=== PATIENT | female | born 1960 | race Caucasian/White ===

== ENCOUNTER 2019-05-30 11:32 | Inpatient (IN) | payer MEDICARE ==
[~2019-05-30] VITALS: Ht 172.7 cm; Wt 119.3 kg
[2019-05-30 13:30] LABS: CHLORIDE 92 mEq/L (98-107)
[2019-05-30 13:31] LABS: INR 1.1; PROTHROMBIN TIME 11.5 sec (9.6-11.0)
[2019-05-30 13:32] LABS: HEMATOCRIT. 42.1 % (36.0-48.0); HEMOGLOBIN. 13.4 g/dL (12.0-16.0); MEAN CORPUSCULAR HEMOGLOBIN 28.7 pg (28.0-32.0); MEAN CORPUSCULAR VOLUME 89.9 fL (81.0-99.0); MEAN PLATELET VOLUME 9.1 fl (7.4-10.4); PLATELET 137 x1000/uL (130-400); RED BLOOD CELL COUNT 4.68 mill/uL (4.2-5.4); RED CELL DISTRIBUTION WIDTH 18.4 % (11.6-14.6)
[2019-05-30 14:16] LABS: PLATELET ESTIMATE NORMAL
[2019-05-30] MEDS ORDERED: PIPERACILLIN/TAZ 3.375G PREMIX 50 ML IV ONE (14:45)
[2019-05-30] MEDS ORDERED: SODIUM CHLORIDE 0.9% 1000ML BAG (SEPSIS BOLUS) IV ONE (14:45)
[2019-05-30] MEDS ORDERED: VANCOMYCIN 1 G PREMIX 200 ML IV ONE (14:45)
[2019-05-30 16:50] VITALS: BP 100/61
[2019-05-30] MEDS ORDERED: ASPI-1497 PO (17:10)
[2019-05-30] MEDS ORDERED: TRAM50TA3 PO (17:10)
[2019-05-30] MEDS ORDERED: [UNRECOGNIZED DRUG - OTHER] (17:10)
[2019-05-30] MEDS ORDERED: SEVE800T8 PO (17:10)
[2019-05-30] MEDS ORDERED: ATOR10TA69 PO (17:10)
[2019-05-30] MEDS ORDERED: OMEP40CA12 PO (17:10)
[2019-05-30] MEDS ORDERED: MIDO10TA PO (17:10)
[2019-05-30] MEDS ORDERED: GABA-531 PO (17:10)
[2019-05-30] MEDS ORDERED: LINA145C PO (17:10)
[2019-05-30 17:43] VITALS: BP 90/45
[2019-05-30 18:00] VITALS: BP 95/58
[2019-05-30] MEDS ORDERED: ZOLPIDEM TARTRATE 5MG TABLET PO PRN (19:45)
[2019-05-30] MEDS ORDERED: ACETAMINOPHEN 325MG TABLET PO PRN (19:45)
[2019-05-30] MEDS ORDERED: DEXTROSE 50% WATER 50ML SYRINGE IV PRN (19:45)
[2019-05-30] MEDS ORDERED: MAGNESIUM/ALUMINUM HYDROXIDE/SIMETHICONE 30ML UDC PO PRN (19:45)
[2019-05-30] MEDS ORDERED: GUAIFENESIN 200MG/10ML SUGAR FREE UDC PO PRN (19:45)
[2019-05-30] MEDS ORDERED: DIPHENHYDRAMINE 50MG/ML VIAL IV PRN (19:45)
[2019-05-30] MEDS ORDERED: ONDANSETRON HCL 4MG/2ML INJ IV PRN (19:45)
[2019-05-30 20:00] VITALS: BP 121/56
[2019-05-30] MEDS: BLOOD SUGAR DIAGNOSTIC STRIP TEST SCH (21:00)
[2019-05-30 22:00] VITALS: BP 134/76
[2019-05-30] MEDS: ATORVASTATIN CALCIUM 10MG TABLET PO SCH (22:01)
[2019-05-30] MEDS: OMEPRAZOLE 20MG CAPSULE EXTENDED RELEASE PO SCH (22:02)
[2019-05-30] MEDS: GABAPENTIN 300MG CAPSULE PO SCH (22:02)
[2019-05-30] MEDS: INSULIN LISPRO 100 UNITS/ML SUBCUT SCH (23:52)
[2019-05-30] MEDS: ACETAMINOPHEN 325MG TABLET PO PRN (23:53)
[2019-05-31] VITALS (11 sets, daily range): BP systolic 69–117; BP diastolic 34–71
[2019-05-31] MEDS: ACETAMINOPHEN 325MG TABLET PO PRN ×4 (00:30→22:30)
[2019-05-31] MEDS: SODIUM CHLORIDE 0.9% INJ 3ML FLUSH IVF SCH ×3 (05:18→22:46)
[2019-05-31] MEDS: GABAPENTIN 300MG CAPSULE PO SCH ×2 (05:19→14:00)
[2019-05-31 06:18] LABS: BASOPHILS % 0.4 % (0.0-2.0); EOSINOPHILS % 0.1 % (0.0-5.0); HEMATOCRIT. 40.1 % (36.0-48.0); HEMOGLOBIN. 12.9 g/dL (12.0-16.0); LYMPHOCYTES % 10.8 % (20.0-50.0); MEAN CORPUSCULAR HEMOGLOBIN 28.8 pg (28.0-32.0); MEAN CORPUSCULAR VOLUME 89.5 fL (81.0-99.0); MEAN PLATELET VOLUME 9.4 fl (7.4-10.4); MONOCYTES % 12.1 % (2.0-8.0); NEUTROPHILS % 76.6 % (40.0-76.0); PLATELET 145 x1000/uL (130-400); RED BLOOD CELL COUNT 4.48 mill/uL (4.2-5.4); RED CELL DISTRIBUTION WIDTH 18.5 % (11.6-14.6)
[2019-05-31] MEDS: BLOOD SUGAR DIAGNOSTIC STRIP TEST SCH ×4 (08:24→22:30)
[2019-05-31] MEDS: OMEPRAZOLE 20MG CAPSULE EXTENDED RELEASE PO SCH ×2 (08:39→22:45)
[2019-05-31] MEDS: SEVELAMER CARBONATE 800 MG TABLET PO SCH ×3 (08:39→18:00)
[2019-05-31] MEDS: INSULIN LISPRO 100 UNITS/ML SUBCUT SCH ×4 (08:40→22:44)
[2019-05-31] MEDS: MIDODRINE HCL 5MG TABLET PO SCH (11:51)
[2019-05-31] MEDS: ASPIRIN 81MG EC TABLET PO SCH (11:51)
[2019-05-31] MEDS: PIPERACILLIN/TAZOBACTAM 2.25 G in DEXTROSE 5% WATER 50 ML IV SCH ×2 (22:45→22:46)
[2019-05-31] MEDS: ATORVASTATIN CALCIUM 10MG TABLET PO SCH (22:51)
[2019-06-01] VITALS: BP 100/50
[2019-06-01] MEDS: SODIUM CHLORIDE 0.9% INJ 3ML FLUSH IVF SCH ×4 (00:22→20:47)
[2019-06-01] MEDS: GABAPENTIN 300MG CAPSULE PO SCH ×4 (00:24→20:50)
[2019-06-01] MEDS: PIPERACILLIN/TAZOBACTAM 2.25 G in DEXTROSE 5% WATER 50 ML IV SCH ×4 (03:22→20:47)
[2019-06-01 04:00] VITALS: BP 100/56
[2019-06-01] MEDS: BLOOD SUGAR DIAGNOSTIC STRIP TEST SCH ×4 (07:41→21:15)
[2019-06-01 07:53] LABS: BASOPHILS % 0.4 % (0.0-2.0); HEMATOCRIT. 38.6 % (36.0-48.0); HEMOGLOBIN. 12.4 g/dL (12.0-16.0); LYMPHOCYTES % 9.1 % (20.0-50.0); MEAN CORPUSCULAR HEMOGLOBIN 28.7 pg (28.0-32.0); MEAN CORPUSCULAR VOLUME 89.4 fL (81.0-99.0); MEAN PLATELET VOLUME 9.3 fl (7.4-10.4); MONOCYTES % 10.5 % (2.0-8.0); PLATELET 167 x1000/uL (130-400); RED BLOOD CELL COUNT 4.32 mill/uL (4.2-5.4); RED CELL DISTRIBUTION WIDTH 18.9 % (11.6-14.6)
[2019-06-01 08:00] VITALS: BP 92/51
[2019-06-01] MEDS: SEVELAMER CARBONATE 800 MG TABLET PO SCH ×3 (10:07→18:52)
[2019-06-01] MEDS: OMEPRAZOLE 20MG CAPSULE EXTENDED RELEASE PO SCH (10:07)
[2019-06-01] MEDS: ASPIRIN 81MG EC TABLET PO SCH (10:07)
[2019-06-01] MEDS: INSULIN LISPRO 100 UNITS/ML SUBCUT SCH ×4 (10:12→21:30)
[2019-06-01] MEDS ORDERED: VANCOMYCIN 750 MG PREMIX 150 ML IV NR (12:00)
[2019-06-01 12:52] VITALS: BP 100/48
[2019-06-01] MEDS: MIDODRINE HCL 5MG TABLET PO SCH ×3 (14:29→18:33)
[2019-06-01 16:31] VITALS: BP 109/62
[2019-06-01 20:00] VITALS: BP 106/54
[2019-06-01] MEDS: ATORVASTATIN CALCIUM 10MG TABLET PO SCH (20:46)
[2019-06-01] MEDS: GUAIFENESIN 600MG ER TABLET PO SCH (20:46)
[2019-06-01] MEDS: ACETAMINOPHEN 325MG TABLET PO PRN (20:47)
[2019-06-02] VITALS: BP 109/50
[2019-06-02 04:00] VITALS: BP 104/33
[2019-06-02] MEDS: GABAPENTIN 300MG CAPSULE PO SCH ×3 (06:31→21:17)
[2019-06-02] MEDS: BLOOD SUGAR DIAGNOSTIC STRIP TEST SCH ×4 (06:31→21:10)
[2019-06-02] MEDS: PIPERACILLIN/TAZOBACTAM 2.25 G in DEXTROSE 5% WATER 50 ML IV SCH ×3 (06:31→21:17)
[2019-06-02] MEDS: SODIUM CHLORIDE 0.9% INJ 3ML FLUSH IVF SCH ×3 (06:31→21:10)
[2019-06-02 08:00] VITALS: BP 87/56
[2019-06-02] MEDS: SEVELAMER CARBONATE 800 MG TABLET PO SCH ×3 (09:29→17:14)
[2019-06-02] MEDS: FAMOTIDINE 20MG TABLET PO SCH (09:30)
[2019-06-02] MEDS: GUAIFENESIN 600MG ER TABLET PO SCH ×2 (09:30→21:17)
[2019-06-02] MEDS: ASPIRIN 81MG EC TABLET PO SCH (09:30)
[2019-06-02] MEDS: MIDODRINE HCL 5MG TABLET PO SCH ×3 (09:30→17:00)
[2019-06-02] MEDS: INSULIN LISPRO 100 UNITS/ML SUBCUT SCH ×4 (09:31→21:19)
[2019-06-02 09:52] LABS: BASOPHILS % 0.3 % (0.0-2.0); HEMATOCRIT. 37.2 % (36.0-48.0); LYMPHOCYTES % 7.5 % (20.0-50.0); MEAN CORPUSCULAR HEMOGLOBIN 28.5 pg (28.0-32.0); MEAN CORPUSCULAR VOLUME 88.5 fL (81.0-99.0); MEAN PLATELET VOLUME 9.1 fl (7.4-10.4); MONOCYTES % 9.2 % (2.0-8.0); PLATELET 192 x1000/uL (130-400); RED CELL DISTRIBUTION WIDTH 18.5 % (11.6-14.6)
[2019-06-02 12:00] VITALS: BP 111/54
[2019-06-02] MEDS ORDERED: HYDROCODONE/ACETAMINOPHEN 5/325MG TABLET PO PRN (13:45)
[2019-06-02] MEDS: ALBUTEROL 6.7GM HFA INHALER ORI SCH ×2 (15:20→22:15)
[2019-06-02 16:00] VITALS: BP 108/72
[2019-06-02 18:00] LABS: BG BASE EXCESS -4.3 mmol/L (-2.0-2.0); BG CARBOXYHEMOGLOBIN 0.1 % (0.5-1.5); BG DEOXYHEMOGLOBIN 6.9 % (0.0-5.0); BG FRACTION INSPIRED OXYGEN 100; BG HCO3 ACT 20.8 mmol/L (22.0-26.0); BG METHEMOGLOBIN 0.3 % (0.0-1.5); BG OXYGEN SATURATION 93.1 % (92.0-98.5); BG OXYHEMOGLOBIN 92.7 % (94.0-97.0); BG PCO2 38.5 mmHg (35.0-45.0); BG PH 7.351 (7.350-7.450); BG PO2 72.4 mmHg (75.0-100.0); BG SAMPLE SITE RIGHT BRACHIAL; BG VENT MODE MASK - NRB
[2019-06-02 20:00] VITALS: BP 89/47
[2019-06-02] MEDS: ATORVASTATIN CALCIUM 10MG TABLET PO SCH (21:17)
[2019-06-03] VITALS: BP 109/43
[2019-06-03 04:00] VITALS: BP 112/54
[2019-06-03] MEDS: SODIUM CHLORIDE 0.9% INJ 3ML FLUSH IVF SCH ×3 (05:13→22:21)
[2019-06-03] MEDS: BLOOD SUGAR DIAGNOSTIC STRIP TEST SCH ×4 (05:54→21:00)
[2019-06-03 05:57] LABS: T4 FREE 1.21 ng/dL (0.76-1.46)
[2019-06-03] MEDS: PIPERACILLIN/TAZOBACTAM 2.25 G in DEXTROSE 5% WATER 50 ML IV SCH ×3 (05:58→22:18)
[2019-06-03] MEDS: GABAPENTIN 300MG CAPSULE PO SCH ×3 (05:58→22:21)
[2019-06-03 06:09] LABS: BASOPHILS % 0.4 % (0.0-2.0); HEMATOCRIT. 38.7 % (36.0-48.0); HEMOGLOBIN. 12.5 g/dL (12.0-16.0); LYMPHOCYTES % 7.9 % (20.0-50.0); MEAN CORPUSCULAR HEMOGLOBIN 28.8 pg (28.0-32.0); MEAN CORPUSCULAR VOLUME 89.1 fL (81.0-99.0); MEAN PLATELET VOLUME 8.9 fl (7.4-10.4); MONOCYTES % 8.3 % (2.0-8.0); NEUTROPHILS % 83.4 % (40.0-76.0); PLATELET 222 x1000/uL (130-400); RED BLOOD CELL COUNT 4.35 mill/uL (4.2-5.4)
[2019-06-03 08:00] VITALS: BP 102/35
[2019-06-03] MEDS: SEVELAMER CARBONATE 800 MG TABLET PO SCH ×3 (08:59→18:29)
[2019-06-03] MEDS: ASPIRIN 81MG EC TABLET PO SCH (08:59)
[2019-06-03] MEDS: GUAIFENESIN 600MG ER TABLET PO SCH ×2 (08:59→22:19)
[2019-06-03] MEDS: MIDODRINE HCL 5MG TABLET PO SCH ×3 (09:00→17:00)
[2019-06-03] MEDS: FAMOTIDINE 20MG TABLET PO SCH (09:00)
[2019-06-03] MEDS: INSULIN LISPRO 100 UNITS/ML SUBCUT SCH ×4 (09:01→23:10)
[2019-06-03 12:00] VITALS: BP 118/56
[2019-06-03 16:00] VITALS: BP 120/64
[2019-06-03 20:00] VITALS: BP 154/56
[2019-06-03] MEDS: ALBUTEROL 6.7GM HFA INHALER ORI SCH (20:40)
[2019-06-03] MEDS: ATORVASTATIN CALCIUM 10MG TABLET PO SCH (22:19)
[2019-06-04] VITALS: BP 135/54
[2019-06-04] MEDS: ALBUTEROL 6.7GM HFA INHALER ORI SCH ×2 (02:12→21:30)
[2019-06-04 04:00] VITALS: BP 130/59
[2019-06-04] MEDS: GABAPENTIN 300MG CAPSULE PO SCH ×3 (05:25→22:48)
[2019-06-04] MEDS: PIPERACILLIN/TAZOBACTAM 2.25 G in DEXTROSE 5% WATER 50 ML IV SCH ×3 (05:25→20:43)
[2019-06-04] MEDS: SODIUM CHLORIDE 0.9% INJ 3ML FLUSH IVF SCH ×3 (05:26→22:00)
[2019-06-04 07:18] LABS: HEMATOCRIT. 39.3 % (36.0-48.0); HEMOGLOBIN. 12.9 g/dL (12.0-16.0); MEAN CORPUSCULAR VOLUME 88.6 fL (81.0-99.0); MEAN PLATELET VOLUME 8.9 fl (7.4-10.4); PLATELET 274 x1000/uL (130-400); RED BLOOD CELL COUNT 4.44 mill/uL (4.2-5.4)
[2019-06-04] MEDS: BLOOD SUGAR DIAGNOSTIC STRIP TEST SCH ×4 (07:32→20:43)
[2019-06-04 08:00] VITALS: BP 95/53
[2019-06-04] MEDS: SEVELAMER CARBONATE 800 MG TABLET PO SCH ×3 (08:10→17:44)
[2019-06-04] MEDS: INSULIN LISPRO 100 UNITS/ML SUBCUT SCH ×4 (09:12→22:54)
[2019-06-04] MEDS: GUAIFENESIN 600MG ER TABLET PO SCH ×2 (09:12→20:43)
[2019-06-04] MEDS: ASPIRIN 81MG EC TABLET PO SCH (09:12)
[2019-06-04] MEDS: MIDODRINE HCL 5MG TABLET PO SCH ×3 (09:16→16:08)
[2019-06-04] MEDS: FAMOTIDINE 20MG TABLET PO SCH (09:16)
[2019-06-04 10:10] LABS: BG CARBOXYHEMOGLOBIN 0.4 % (0.5-1.5); BG DEOXYHEMOGLOBIN 21.6 % (0.0-5.0); BG FRACTION INSPIRED OXYGEN 100; BG HCO3 ACT 16.3 mmol/L (22.0-26.0); BG METHEMOGLOBIN 0.2 % (0.0-1.5); BG OXYGEN SATURATION 78.3 % (92.0-98.5); BG OXYHEMOGLOBIN 77.8 % (94.0-97.0); BG PCO2 29.8 mmHg (35.0-45.0); BG PH 7.355 (7.350-7.450); BG PO2 46.7 mmHg (75.0-100.0); BG SAMPLE SITE RIGHT BRACHIAL; BG TOTAL HEMOGLOBIN 12.9 g/dL (12.0-18.0); BG VENT MODE MASK - NRB
[2019-06-04] MEDS ORDERED: HEPARIN 25,000 UNITS PREMIX 500 ML IV PRN (11:00)
[2019-06-04 11:36] LABS: PLATELET ESTIMATE NORMAL
[2019-06-04 12:30] VITALS: BP 90/67
[2019-06-04] MEDS ORDERED: VANCOMYCIN 1 G PREMIX 200 ML IV SCH (14:00)
[2019-06-04] MEDS ORDERED: SODIUM POLYSTYRENE SULFONATE 15 G/60 ML BOT PO NR (15:00)
[2019-06-04 16:00] VITALS: BP 110/64
[2019-06-04] MEDS ORDERED: HEPARIN 25,000 UNITS PREMIX 500 ML IV SCH (17:30)
[2019-06-04] MEDS ORDERED: HEPARIN 80 UNITS/KG BOLUS IV NR (17:30)
[2019-06-04] MEDS ORDERED: HEPARIN BOLUS PRN aPTT 37-44 IV (17:30)
[2019-06-04] MEDS ORDERED: HEPARIN BOLUS PRN aPTT <36 IV (17:30)
[2019-06-04 20:00] VITALS: BP 112/67
[2019-06-04] MEDS: ATORVASTATIN CALCIUM 10MG TABLET PO SCH (20:43)
[2019-06-05] VITALS (7 sets, daily range): BP systolic 99–156; BP diastolic 63–90
[2019-06-05] MEDS: ALBUTEROL 6.7GM HFA INHALER ORI SCH ×2 (02:15→09:32)
[2019-06-05] MEDS: SODIUM CHLORIDE 0.9% INJ 3ML FLUSH IVF SCH ×2 (05:09→14:00)
[2019-06-05] MEDS: GABAPENTIN 300MG CAPSULE PO SCH ×2 (05:39→14:00)
[2019-06-05] MEDS: PIPERACILLIN/TAZOBACTAM 2.25 G in DEXTROSE 5% WATER 50 ML IV SCH ×2 (05:39→14:00)
[2019-06-05] MEDS: BLOOD SUGAR DIAGNOSTIC STRIP TEST SCH ×3 (06:49→16:45)
[2019-06-05] MEDS: SEVELAMER CARBONATE 800 MG TABLET PO SCH ×3 (08:41→16:45)
[2019-06-05] MEDS: GUAIFENESIN 600MG ER TABLET PO SCH (08:53)
[2019-06-05] MEDS: FAMOTIDINE 20MG TABLET PO SCH (08:53)
[2019-06-05] MEDS: ASPIRIN 81MG EC TABLET PO SCH (08:53)
[2019-06-05] MEDS: MIDODRINE HCL 5MG TABLET PO SCH ×3 (08:57→16:25)
[2019-06-05] MEDS: INSULIN LISPRO 100 UNITS/ML SUBCUT SCH ×2 (09:00→12:13)
[2019-06-05] MEDS ORDERED: VANCOMYCIN 1 G PREMIX 200 ML IV SCH (14:00)
== END 2019-06-05 17:50 | disposition left against medical advice (07) | DRG 871 ==
LOC: ER 11:44 → 5EST 15:22 → EDBEDREQTM 15:24 → EDBEDREQ 15:24 → ENRESERV 15:46 → 7EST 05-31 21:15 → 7WST 05-31 22:03
PROVIDERS: ADMIT Internal Medicine; ATTEND Internal Medicine
PROC: 5A1D70Z Performance of Urinary Filtration, Intermittent, Less than 6 Hours Per Day (ICD-10-PCS; principal; 2019-06-02)
PROC: 5A1D70Z Performance of Urinary Filtration, Intermittent, Less than 6 Hours Per Day (ICD-10-PCS; 2019-06-04)
PROC: 5A1D70Z Performance of Urinary Filtration, Intermittent, Less than 6 Hours Per Day (ICD-10-PCS; 2019-06-05)
DX: A41.9 Sepsis, unspecified organism (principal); J18.9 Pneumonia, unspecified organism; G93.41 Metabolic encephalopathy; N18.6 End stage renal disease; E43 Unspecified severe protein-calorie malnutrition; J96.01 Acute respiratory failure with hypoxia; E87.1 Hypo-osmolality and hyponatremia; I12.0 Hypertensive chronic kidney disease with stage 5 chronic kidney disease or end stage renal disease; I67.82 Cerebral ischemia; Z68.41 Body mass index [BMI] 40.0-44.9, adult; E87.2 Acidosis; E11.22 Type 2 diabetes mellitus with diabetic chronic kidney disease; E11.40 Type 2 diabetes mellitus with diabetic neuropathy, unspecified; E66.01 Morbid (severe) obesity due to excess calories; E78.00 Pure hypercholesterolemia, unspecified; D72.810 Lymphocytopenia; E78.5 Hyperlipidemia, unspecified; Z20.828 Contact with and (suspected) exposure to other viral communicable diseases; E87.5 Hyperkalemia; K21.9 Gastro-esophageal reflux disease without esophagitis; Z79.82 Long term (current) use of aspirin; Z79.899 Other long term (current) drug therapy; Z83.3 Family history of diabetes mellitus; Z99.2 Dependence on renal dialysis
CPT/HCPCS: 36415; 36600; 71045; 80048; 80053; 80061; 80076; 80202; 82375; 82805; 82962; 83036; 83605; 84145; 84439; 84443; 84484; 85025; 85379; 86850; 86900; 87635; 93005; 93970; 99291; J1644; J1815; J2543; J3370; J7030; J7060